=== PATIENT | male | born 1975 | race Caucasian/White ===

== ENCOUNTER → 2017-09-13 | Outpatient (CLI) | payer OTHER ==
[~2017-09-13] MED LIST: CIPR-225 PO; CIPR500T78 PO; CODE-54; GENT3.5O18 OD; HYDR-3714 PO; HYDR-3720 PO; HYDR1CAP2; HYDR1TAB PO; HYDR1TAB8 PO; LANS15CA5 PO; LUBI8CAP PO; METR500T PO; OMEP-10 GT; ONDA4TAB8 PO; PRD20T PO; PRED20TA PO; PRM25T PO; RANI75TA30 PO; SULF1TAB38 PO; TAMS0.4C98 PO; TMSL.4C PO; [UNRECOGNIZED DRUG - CODE] IM
--- NOTE | 2017-09-13 12:22 | Diagnostic Imaging Report ---
INDICATION: Pain on the ulnar side of the wrist for two weeks. TIME OF EXAMINATION: 12:18 p.m. FINDINGS: Three views of the left wrist were obtained. The distal radius and ulna are intact. The carpus is intact. Metacarpals are unremarkable. No fractures are seen. IMPRESSION: No acute bony abnormality is detected. Dictated by: Dictated on workstation # [id number]
== END ==
LOC: RAD 11:48
PROVIDERS: ATTEND Nurse Practitioner Family
DX: M25.532 Pain in left wrist (principal)
CPT/HCPCS: 73110

== ENCOUNTER 2018-01-02 10:08 | Emergency (ER) | payer OTHER ==
[~2018-01-02] VITALS: Ht 160 cm; Wt 72.6 kg
[2018-01-02] MEDS ORDERED: LISI-552 (10:25)
--- NOTE | 2018-01-02 10:28 | ED Chest Pain ---
General Chief Complaint: Chest Wall/Rib Pain Stated Complaint: CP X 2 DAYS,MIGRAINE Source: patient Exam Limitations: no limitations History of Present Illness Date Seen by Provider: Jan 02, 2018 Time Seen by Provider: 10:26 Initial Comments to ER with right sided chest pain begins at about the nipple line midsternum and extends superiorly and laterally to the right shoulder. This is been intermittent for the past 4 days. No known preceding injury. No cough. No shortness of breath. Pain is worsened by deep breathing. He does have a history of Crohn's disease but he takes no medication for this. He also has a migraine which is not uncommon for him but this one will not go away. No vomiting. No fevers or chills. Timing/Duration: 3-4 days Severity/Quality: moderate, other (ddescribed as a intermittent spasm) Location: central Radiation: shoulders (right shoulder) Activities at Onset: none Prior CP/Workup: no prior chest pain ASA po MEAT STOCKER: No NTG SL MEAT STOCKER: No Associated Symptoms: abdominal pain (states that his abdomen "always hurts from Crohn's"); No back pain, No diaphoresis, No dizziness, No edema, No fatigue , No fever/chills, No headache, No heartburn, No nausea/vomiting, No rash, No shortness of breath, No swelling/lump in chest Allergies and Home Medications Allergies Coded Allergies: Penicillins (Unverified Allergy, Mild, UNKNOWN, 11/23/08) aspirin (Unverified Allergy, Unknown, 11/07/14) Home Medications Prednisone 20 Mg Tab, 40 MG PO DAILY Prescribed by: DONNIE PRESTON on 01/02/18 1119 Patient Home Medication List Home Medication List Reviewed: Yes Review of Systems Constitutional: see HPI; No chills, No fever EENTM: No Symptoms Reported Respiratory: See HPI; Denies Cough Cardiovascular: See HPI, Chest Pain Gastrointestinal: No Symptoms Reported Genitourinary: No Symptoms Reported Musculoskeletal: no symptoms reported Skin: no symptoms reported Psychiatric/Neurological: No Symptoms Reported Endocrine: No Symptoms Reported Hematologic/Lymphatic: No Symptoms Reported Past Zeupvoy-Ucqznz-Eenato Hx Patient Social History Alcohol Use: Denies Use Recreational Drug Use: No Smoking Status: Current Someday Smoker Type Used: Cigarettes Recent Foreign Travel: No Contact w/Someone Who Travel: No Recent Hopitalizations: No Seasonal Allergies Seasonal Allergies: No Past Medical History Surgeries: Yes (ESWL, ELBOW SURGERY; COLONOSCOPY) Orthopedic, Renal Respiratory: No Cardiac: Yes Neurological: No Reproductive Disorders: No Kidney Stones Gastrointestinal: Yes Gastroesophageal Reflux, Crohns Disease, Diverticulosis, Irritable Bowel Musculoskeletal: Yes (CHRONIC ELBOW PAIN) Fractures Endocrine: No Cancer: No Psychosocial: No Integumentary: No Blood Disorders: No Family Medical History FH: malignant neoplasm of brain 19 MOTHER Physical Exam Vital Signs Vital Signs - First Documented 01/02/18 10:13 Temp 97.5 Pulse 82 Resp 18 B/P (MAP) 131/101 (111) Capillary Refill : Height, Weight, BMI Height: 5'1" Weight: 145lbs. oz. 65.638210ns; BMI Method:Stated General Appearance: No Apparent Distress, WD/WN HEENT: PERRL/EOMI, TMs Normal Neck: Full Range of Motion, Normal Inspection; No JVD Respiratory: Chest Non Tender, Lungs Clear, Normal Breath Sounds, No Accessory Muscle Use, No Respiratory Distress Cardiovascular: Regular Rate, Rhythm, Normal Peripheral Pulses Gastrointestinal: Normal Bowel Sounds, Non Tender, Soft Extremity: Normal Capillary Refill, Normal Inspection Neurologic/Psychiatric: Alert, Oriented x3, No Motor/Sensory Deficits Skin: Normal Color, Warm/Dry Progress/Results/Core Measures Results/Orders Lab Results Laboratory Tests Test 01/02/18 10:17 Range/Units White Blood Count 4.5 4.3-11.0 10^3/uL Red Blood Count 4.74 4.35-5.85 10^6/uL Hemoglobin 15.0 13.3-17.7 G/DL Hematocrit 41 40-54 % Mean Corpuscular Volume 85 80-99 FL Mean Corpuscular Hemoglobin 32 25-34 PG Mean Corpuscular Hemoglobin Concent 37 H 32-36 G/DL Red Cell Distribution Width 12.7 10.0-14.5 % Platelet Count 281 130-400 10^3/uL Mean Platelet Volume 9.2 7.4-10.4 FL Neutrophils (%) (Auto) 47 42-75 % Lymphocytes (%) (Auto) 44 12-44 % Monocytes (%) (Auto) 8 0-12 % Eosinophils (%) (Auto) 0 0-10 % Basophils (%) (Auto) 1 0-10 % Neutrophils # (Auto) 2.1 1.8-7.8 X 10^3 Lymphocytes # (Auto) 2.0 1.0-4.0 X 10^3 Monocytes # (Auto) 0.4 0.0-1.0 X 10^3 Eosinophils # (Auto) 0.0 0.0-0.3 10^3/uL Basophils # (Auto) 0.0 0.0-0.1 10^3/uL Erythrocyte Sedimentation Rate 4 0-15 MM/HR D-Dimer < 0.27 0.00-0.49 UG/ML Sodium Level 140 135-145 MMOL/L Potassium Level 3.8 3.6-5.0 MMOL/L Chloride Level 107 98-107 MMOL/L Carbon Dioxide Level 24 21-32 MMOL/L Anion Gap 9 5-14 MMOL/L Blood Urea Nitrogen 16 7-18 MG/DL Creatinine 0.90 0.60-1.30 MG/DL Estimat Glomerular Filtration Rate > 60 BUN/Creatinine Ratio 18 Glucose Level 124 H 70-105 MG/DL Calcium Level 9.4 8.5-10.1 MG/DL Total Bilirubin 0.6 0.1-1.0 MG/DL Aspartate Amino Transf (AST/SGOT) 30 5-34 U/L Alanine Aminotransferase (ALT/SGPT) 80 H 0-55 U/L Alkaline Phosphatase 44 40-136 U/L Troponin I < 0.30 <0.30 NG/ML C-Reactive Protein High Sensitivity 0.11 0.00-0.50 MG/DL B-Type Natriuretic Peptide 17.9 <100.0 PG/ML Total Protein 7.1 6.4-8.2 GM/DL Albumin 4.4 3.2-4.5 GM/DL My Orders Orders - DONNIE PRESTON [employer] Cbc With Automated Diff (01/02/18 10:22) Comprehensive Metabolic Panel (01/02/18 10:22) Erythrocyte Sedimentation Rate (01/02/18 10:22) Hs C Reactive Protein (01/02/18 10:22) Iv Heplock-Insert (Order) (01/02/18 10:22) Chest Pa/Lat (2 View) (01/02/18 10:22) Ekg Tracing (01/02/18 10:22) Troponin I (01/02/18 10:22) BNP (01/02/18 10:22) Fibrin Degradation Products (01/02/18 10:22) Ketorolac Injection (Toradol Injection) (01/02/18 10:30) Orphenadrine Injection (Norflex Injectio (01/02/18 10:30) Medications Given in ED Current Medications Medications Dose Ordered Sig/Elly Route Start Time Stop Time Status Last Admin Dose Admin Ketorolac Tromethamine 30 mg ONCE ONCE IV 01/02/18 10:30 01/02/18 10:31 DC 01/02/18 10:35 30 MG Orphenadrine Citrate 60 mg ONCE ONCE IV 01/02/18 10:30 01/02/18 10:31 DC 01/02/18 10:34 60 MG Vital Signs/I&O 01/02/18 10:13 Temp 97.5 Pulse 82 Resp 18 B/P (MAP) 131/101 (111) Progress Progress Note : Progress Note 1120- Pain much improved after toradol norflex. Diagnostic Imaging Diagonstic Imaging: Xray Plain Films/CT/US/NM/MRI: chest Comments NAME: JARED GIBSON [facility] REC#: [id number] PT STATUS: REG ER : 1975 PHYSICIAN: DONNIE PRESTON APRN ADMIT DATE: 01/02/18/ER Draft Date of Exam:01/02/18 CHEST PA/LAT (2 VIEW) PATIENT HISTORY: Chest pain. TECHNIQUE: 2 views of the chest COMPARISON: 12/28/2015 and priors FINDINGS: Minimal opacities are seen in the left lung base, which appear stable since 03/20/2014. Given the stability, this likely represents atelectasis or scarring. No new consolidation is seen. There is no pleural effusion or pneumothorax. The cardiac silhouette is normal in size and contour. No acute osseous abnormality is seen. IMPRESSION: Chronic left basilar opacities, likely atelectasis or scarring. No new consolidation seen. Dictated on workstation # [id number] Dict: 01/02/18 1106 Trans: 01/02/18 1112 YIFAN [id number] Interpreted by: RAMON BEARD MD Electronically signed by: Departure Impression Primary Impression: Pleuritic chest pain Disposition: HOME, SELF-CARE Condition: Stable Departure-Patient Inst. Decision time for Depature: 11:12 Referrals: RUTHIE AMADOR MD (PCP/Family) Primary Care Physician Patient Instructions: Pleuritic Chest Pain (DC) Add. Discharge Instructions: 1. Anti-inflammatories as directed 2. Follow-up with Dr. Amador within 2-3 days for recheck. 3. Return to ER for any worsening. Scripts Prednisone (Prednisone) 20 Mg Tab 40 MG PO DAILY, #6 TAB Prov: DONNIE PRESTON APRN 01/02/18 DONNIE PRESTON APRN Jan 02, 2018 10:28
[2018-01-02] MEDS ORDERED: KETOROLAC 30 MG/ML VIAL IV ONE (10:30)
[2018-01-02] MEDS ORDERED: ORPHENADRINE 60 MG/2 ML (NORFLEX) AMP IV ONE (10:30)
[2018-01-02 10:31] LABS: BASOPHILS % (AUTO) 1 % (0-10); EOSINOPHILS % (AUTO) 0 % (0-10); HEMATOCRIT 41 % (40-54); LYMPHOCYTES % (AUTO) 44 % (12-44); MEAN CORPUSCULAR HEMOGLOBIN 32 PG (25-34); MEAN CORPUSCULAR HGB CONC 37 G/DL (32-36); MEAN CORPUSCULAR VOLUME 85 FL (80-99); MEAN PLATELET VOLUME 9.2 FL (7.4-10.4); MONOCYTES # (AUTO) 0.4 X 10^3 (0.0-1.0); MONOCYTES % (AUTO) 8 % (0-12); NEUTROPHILS # (AUTO) 2.1 X 10^3 (1.8-7.8); NEUTROPHILS % (AUTO) 47 % (42-75); PLATELET COUNT 281 10^3/uL (130-400); RED BLOOD COUNT 4.74 10^6/uL (4.35-5.85); RED CELL DISTRIBUTION WIDTH 12.7 % (10.0-14.5); WHITE BLOOD COUNT 4.5 10^3/uL (4.3-11.0)
[2018-01-02 10:52] LABS: ALANINE AMINOTRANSFERASE 80 U/L (0-55); ALBUMIN 4.4 GM/DL (3.2-4.5); ALKALINE PHOSPHATASE 44 U/L (40-136); BILIRUBIN,TOTAL 0.6 MG/DL (0.1-1.0); BUN/CREATININE RATIO 18; CALCIUM 9.4 MG/DL (8.5-10.1); CARBON DIOXIDE 24 MMOL/L (21-32); CHLORIDE 107 MMOL/L (98-107); GFR ESTIMATED > 60; GLUCOSE 124 MG/DL (70-105); POTASSIUM 3.8 MMOL/L (3.6-5.0); SODIUM 140 MMOL/L (135-145); TOTAL PROTEIN 7.1 GM/DL (6.4-8.2)
[2018-01-02 11:07] LABS: ERYTHROCYTE SEDIMENTATION RATE 4 MM/HR (0-15)
--- NOTE | 2018-01-02 11:12 | Diagnostic Imaging Report ---
PATIENT HISTORY: Chest pain. TECHNIQUE: 2 views of the chest COMPARISON: 12/28/2015 and priors FINDINGS: Minimal opacities are seen in the left lung base, which appear stable since 03/20/2014. Given the stability, this likely represents atelectasis or scarring. No new consolidation is seen. There is no pleural effusion or pneumothorax. The cardiac silhouette is normal in size and contour. No acute osseous abnormality is seen. IMPRESSION: Chronic left basilar opacities, likely atelectasis or scarring. No new consolidation seen. Dictated by: Dictated on workstation # [id number]
[2018-01-02] MEDS ORDERED: PRD20T PO (11:19)
[2018-01-02 12:05] VITALS: BP 134/90
== END 2018-01-02 11:41 | disposition home or self-care (01) ==
LOC: EDUNIT# 10:08 → ER 10:09
DX: R07.89 Other chest pain (principal); F17.210 Nicotine dependence, cigarettes, uncomplicated; K21.9 Gastro-esophageal reflux disease without esophagitis; Z87.19 Personal history of other diseases of the digestive system; Z87.442 Personal history of urinary calculi; Z88.0 Allergy status to penicillin; Z88.6 Allergy status to analgesic agent
CPT/HCPCS: 36415; 71046; 80053; 83880; 84484; 85025; 85379; 85652; 86141; 93005; 96374; 96375

== ENCOUNTER 2023-03-30 05:43 | Outpatient (CLI) | payer OTHER ==
[~2023-03-30] VITALS: Ht 155 cm; Wt 74.9 kg
[~2023-03-30 05:43] MED LIST changes: +LISI20TA26; -TAMS0.4C98 PO
[2023-03-30] MEDS ORDERED: PREG50CA66 PO (15:10)
[2023-03-30] MEDS ORDERED: ZOLP10TA PO (15:10)
[2023-03-30] MEDS ORDERED: FEXO180T84 PO (15:10)
[2023-03-30] MEDS ORDERED: METF-397 PO (15:10)
[2023-03-30] MEDS ORDERED: LOSA25TA41 PO (15:10)
== END 2023-03-30 15:17 | disposition home or self-care (01) ==
LOC: PREOP 05:43
PROVIDERS: ATTEND Surgery
DX: Z01.818 Encounter for other preprocedural examination (principal)